=== PATIENT | male | born 1965 | race Caucasian/White ===

== ENCOUNTER → 2021-10-10 | Outpatient (CLI) | payer OTHER ==
--- NOTE | 2021-10-11 18:45 | CARD ---
MR#: [id number] Date of Study: 10/10/2021 Ordering Physician: STAFF NON, Referring Physician: STAFF FERNANDO, Tech: Vivien Burgos [facility] APPROVED REPORT EXAM: Two-dimensional and M-mode echocardiogram with Doppler and color Doppler. Other Information Quality : Average Technically limited study due to body habitus. INDICATION COPD Pulmonary Hypertention 2D DIMENSIONS RVDd3.2 (2.9-3.5cm)Left Atrium(2D)2.5 (1.6-4.0cm) IVSd0.9 (0.7-1.1cm)Aortic Root(2D)3.9 (2.0-3.7cm) LVDd4.9 (3.9-5.9cm)LVOT Diameter2.1 (1.8-2.4cm) PWd1.0 (0.7-1.1cm)LVDs3.6 (2.5-4.0cm) FS (%) 25.6 %SV55.5 ml LVEF(%)50.2 (>50%) Aortic Valve AoV Peak Marcus.172.0cm/sAoV VTI30.5cm AO Peak GR.11.8mmHgLVOT Peak Marcus.103.1cm/s LVOT VTI 20.64cmAO Mean GR.7mmHg PAULINA (VMAX)1.50ya2UDQ (VTI)2.36cm2 AI P 1/2 Epxo199hw Mitral Valve MV E Zfkuhbrf73.3cm/sMV DECEL TOQC260jz MV A Bflpgbvl66.0cm/sMV E Mean Gr.1mmHg MV TAL56qoZ/A Ratio0.7 MVA (PHT)3.05cm2 TDI E/Lateral E'6.3E/Medial E'6.9 Pulmonary Valve PV Peak Bxhcjhbn39.9cm/sPV Peak Grad.2mmHg Tricuspid Valve TR P. Xorvjavp410ny/sRAP GJZVIAYA9gmGy TR Peak Gr.73cfKkUHWV18qhVv Pulmonary Vein S1 Vbidwcsk44.6cm/sD2 Bnpwuqpk07.8cm/s PVa fvrkfrfj728motx LEFT VENTRICLE The left ventricle is normal size. There is normal left ventricular wall thickness. The left ventricu lar systolic function is normal and the ejection fraction is within normal range. The Ejection Fracti on is 50-55%. There is normal LV segmental wall motion. Transmitral Doppler flow pattern is Grade I-a bnormal relaxation pattern. RIGHT VENTRICLE The right ventricle is normal size. There is normal right ventricular wall thickness. The right ventr icular systolic function is normal. ATRIA The left atrium size is normal. The right atrium size is normal. The interatrial septum is intact wit h no evidence for an atrial septal defect or patent foramen ovale as noted on 2-D or Doppler imaging. AORTIC VALVE The aortic valve is not well visualized but appears to be calcified with restricted leaflet motion. N o obvious stenosis noted on color Doppler and spectral waveform images Doppler and Color Flow reveale d trace to mild aortic regurgitation. Calculated aortic valve area is 2.16 cm2 with maximum pressure gradient of 13 mmHg and mean pressure gradient of 8 mmHg. MITRAL VALVE The mitral valve is normal in structure and function. There is no evidence of mitral valve prolapse. There is no mitral valve stenosis. Doppler and Color-flow revealed trace mitral regurgitation. TRICUSPID VALVE The tricuspid valve is normal in structure and function. Doppler and Color Flow revealed trace tricus pid regurgitation with an estimated PAP of 35 mmHg. There is no tricuspid valve stenosis. PULMONIC VALVE The pulmonic valve is not well visualized. Doppler and Color Flow revealed no pulmonic valvular regur gitation. There is no pulmonic valvular stenosis. GREAT VESSELS The aortic root is mildly enlarged measuring 4.1 cm. The ascending aorta is mildly dilated measuring 4.1 cm. The IVC is normal in size and collapses >50% with inspiration. PERICARDIAL EFFUSION There is no evidence of significant pericardial effusion. Critical Notification Critical Value: No <Conclusion> The left ventricular systolic function is normal and the ejection fraction is within normal range. Th e Ejection Fraction is 50-55%. There is normal LV segmental wall motion. The aortic valve is not well visualized but appears to be calcified with restricted leaflet motion. No obvious stenosis noted on color Doppler and spectral waveform images Doppler and Color Flow revealed trace tricuspid regurgitation with an estimated PAP of 35 mmHg. The ascending aorta is mildly dilated measuring 4.1 cm. Signed by : Abdirahman Alejo, Electronically Approved : 10/11/2021 18:44:52
== END ==
LOC: ECHO 16:07
PROVIDERS: ATTEND Student in an Organized Health Care Education/Training Program
DX: I35.1 Nonrheumatic aortic (valve) insufficiency (principal); I27.20 Pulmonary hypertension, unspecified
CPT/HCPCS: 93306